=== PATIENT | female | born 1985 | race Caucasian/White ===

== ENCOUNTER 2017-11-05 21:25 | Inpatient (IN) | payer MEDICAID ==
[2017-11-05] MEDS ORDERED: LIDOCAINE 1% (MPF) 30 ML INJ (21:42)
[2017-11-05] MEDS ORDERED: AMPICILLIN 2 GM/NS (PMX) 100 ML (21:42)
[2017-11-05] MEDS ORDERED: LACTATED RINGER'S 1,000 ML IV (21:53)
[2017-11-05] MEDS ORDERED: CARBOPROST 250 MCG INJ IM ×2 (22:00→23:30)
[2017-11-05] MEDS ORDERED: BUTORPHANOL 2 MG INJ IV (22:00)
[2017-11-05] MEDS ORDERED: OXYTOCIN 30 UNITS/LR 500 ML IV ×2 (22:00→23:30)
[2017-11-05] MEDS ORDERED: METHYLERGONOVINE 0.2 MG INJ IM ×2 (22:00→23:30)
[2017-11-05] MEDS ORDERED: IBUPROFEN 600 MG TAB PO (22:00)
[2017-11-05] MEDS ORDERED: MISOPROSTOL 200 MCG TAB PR ×2 (22:00→23:30)
[2017-11-05] MEDS: AMPICILLIN 2 GM/NS (PMX) 100 ML IV (22:12)
[2017-11-05] MEDS: LACTATED RINGER'S 1,000 ML IV (22:12)
[2017-11-05 22:17] LABS: ADD MAN DIFF? NO
[2017-11-05 22:18] LABS: BASOPHILS % 0.3 % (0.0-2.0); EOSINOPHILS % 0.6 % (0.0-7.0); HEMATOCRIT 35.9 % (37.0-47.0); HEMOGLOBIN 12.4 g/dl (12.0-16.0); LYMPHOCYTES # 1.7 10^3/ul (0.8-2.9); LYMPHOCYTES % 24.3 % (15.0-51.0); MEAN CORPUSCULAR HEMOGLOBIN 30.3 pg (29.0-33.0); MEAN CORPUSCULAR HGB CONC 34.5 g/dl (32.0-37.0); MEAN CORPUSCULAR VOLUME 87.8 fl (82.0-101.0); MEAN PLATELET VOLUME 10.1 fl (7.4-10.4); MONOCYTE # 0.4 10^3/ul (0.3-0.9); NEUTROPHIL # 4.8 10^3/ul (1.6-7.5); NEUTROPHILS % 68.5 % (39.0-77.0); PLATELET COUNT 214 10^3/UL (140-415); RED BLOOD COUNT 4.09 10^6/ul (4.20-5.40); RED CELL DISTRIBUTION WIDTH 12.5 % (11.5-14.5)
[2017-11-05 22:45] LABS: INR 0.92; PROTIME 12.4 Sec (11.9-14.9)
[2017-11-05 22:46] LABS: PARTIAL THROMBOPLASTIN TIME 33.4 Sec (25.0-35.0)
[2017-11-05] MEDS: OXYTOCIN 30 UNITS/LR 500 ML IV ×2 (22:49→23:13)
[2017-11-05] MEDS: LIDOCAINE 1% (MPF) 30 ML INJ INJ (23:01)
[2017-11-05] MEDS: LACTATED RINGER'S 1,000 ML IV* (23:08)
[2017-11-05] MEDS: IBUPROFEN 600 MG TAB PO (23:14)
[2017-11-05] MEDS ORDERED: OXYCODONE/ASPIRIN (4.88/325) TAB PO (23:30)
[2017-11-06] MEDS ORDERED: AMPICILLIN 1 GM/NS (PMX) 50 ML IV (02:00)
[2017-11-06] MEDS: OXYTOCIN 30 UNITS/LR 500 ML IV (04:27)
[2017-11-06] MEDS: BENZOCAINE 20% 56 ML SPRAY TOP (04:31)
[2017-11-06] MEDS: LANOLIN 7 GM TUBE TOP (04:32)
[2017-11-06] MEDS: IBUPROFEN 600 MG TAB PO ×4 (05:18→23:14)
[2017-11-06 22:10] LABS: RAPID PLASMA REAGIN NONREACTIVE (NR)
[2017-11-07] MEDS: IBUPROFEN 600 MG TAB PO ×3 (05:22→17:20)
[2017-11-07 08:56] LABS: ADD MAN DIFF? NO
[2017-11-07 08:59] LABS: WHITE BLOOD COUNT 6.8 10^3/ul (4.8-10.8)
[2017-11-07 08:59] LABS: BASOPHILS % 0.3 % (0.0-2.0); EOSINOPHILS # 0.1 10^3/ul (0.0-0.5); EOSINOPHILS % 0.9 % (0.0-7.0); HEMATOCRIT 31.5 % (37.0-47.0); HEMOGLOBIN 10.6 g/dl (12.0-16.0); LYMPHOCYTES # 1.7 10^3/ul (0.8-2.9); LYMPHOCYTES % 24.5 % (15.0-51.0); MEAN CORPUSCULAR HEMOGLOBIN 30.3 pg (29.0-33.0); MEAN CORPUSCULAR HGB CONC 33.7 g/dl (32.0-37.0); MEAN PLATELET VOLUME 10.1 fl (7.4-10.4); MONOCYTE # 0.4 10^3/ul (0.3-0.9); MONOCYTES % 5.1 % (0.0-11.0); NEUTROPHIL # 4.7 10^3/ul (1.6-7.5); NEUTROPHILS % 68.8 % (39.0-77.0); PLATELET COUNT 206 10^3/UL (140-415); RED CELL DISTRIBUTION WIDTH 12.7 % (11.5-14.5)
[2017-11-07] MEDS: DIPHTH/TET/ACEL PERTUSS (ADULT) 0.5 ML VIAL IM* (17:23)
== END 2017-11-07 19:25 | disposition home or self-care (01) | DRG 775 ==
LOC: OBT 21:25 → L-D 21:26 → PP1 11-06 00:25 → L-D 21:31 → OBT 21:40 → L-D 21:40
PROVIDERS: Obstetrics & Gynecology
PROC: 10E0XZZ Delivery of Products of Conception, External Approach (ICD-10-PCS; principal; 2017-11-05)
PROC: 0KQM0ZZ Repair Perineum Muscle, Open Approach (ICD-10-PCS; 2017-11-05)
PROC: 3E033VJ Introduction of Other Hormone into Peripheral Vein, Percutaneous Approach (ICD-10-PCS; 2017-11-05)
DX: O70.1 Second degree perineal laceration during delivery (principal); Z37.0 Single live birth; Z3A.39 39 weeks gestation of pregnancy
CPT/HCPCS: 85025; 85610; 85730; 86592; 86900; 86901; 90715

== ENCOUNTER 2019-04-08 20:40 | Inpatient (IN) | payer MEDICAID ==
[2019-04-08] MEDS ORDERED: METHYLERGONOVINE 0.2 MG INJ IM (22:30)
[2019-04-08] MEDS ORDERED: CARBOPROST 250 MCG INJ IM (22:30)
[2019-04-08] MEDS ORDERED: OXYTOCIN 30 UNITS/LR 500 ML IV (22:30)
[2019-04-08] MEDS ORDERED: MISOPROSTOL 200 MCG TAB PR (22:30)
[2019-04-08] MEDS ORDERED: BUTORPHANOL 2 MG INJ IV (22:30)
[2019-04-08] MEDS: LACTATED RINGER'S 1,000 ML IV (22:57)
[2019-04-09] MEDS: MINERAL OIL LIGHT 10 ML VIAL TOP (00:30)
[2019-04-09] MEDS: OXYTOCIN 30 UNITS/LR 500 ML IV ×3 (03:04→03:09)
[2019-04-09] MEDS: LIDOCAINE 1% (MPF) 30 ML INJ INJ (03:05)
[2019-04-09] MEDS: LACTATED RINGER'S 1,000 ML IV* ×2 (03:09→08:04)
[2019-04-09] MEDS ORDERED: CARBOPROST 250 MCG INJ IM (03:30)
[2019-04-09] MEDS ORDERED: METHYLERGONOVINE 0.2 MG INJ IM (03:30)
[2019-04-09] MEDS ORDERED: HYDROCODONE/APAP (5/325) TAB PO ×2 (03:30)
[2019-04-09] MEDS ORDERED: MISOPROSTOL 200 MCG TAB PR (03:30)
[2019-04-09] MEDS ORDERED: DIBUCAINE 1% 30 GM OINT TOP (03:30)
[2019-04-09] MEDS ORDERED: OXYTOCIN 30 UNITS/LR 500 ML IV (03:30)
[2019-04-09] MEDS: BENZOCAINE 20% 56 ML SPRAY TOP (05:38)
[2019-04-09] MEDS: WITCH HAZEL/GLYCERIN PAD PR (05:39)
[2019-04-09] MEDS: IBUPROFEN 600 MG TAB PO ×4 (05:39→23:43)
[2019-04-09] MEDS: LANOLIN HPA 1 PKT TOP (05:39)
[2019-04-10] MEDS: IBUPROFEN 600 MG TAB PO ×2 (05:49→11:25)
[2019-04-11] MEDS ORDERED: DIPHTH/TET/ACEL PERTUSS (ADULT) 0.5 ML VIAL IM* (09:00)
[2019-04-11] MEDS ORDERED: VARICELLA VACCINE LIVE/PF 1,350 UNIT/0.5 ML ML SC* (09:00)
[2019-04-11] MEDS ORDERED: MEASLES,MUMPS,RUBELLA VACCINE INJ SC* (09:00)
== END 2019-04-10 13:50 | disposition home or self-care (01) | DRG 807 ==
LOC: OBT 20:40 → MS1 04-09 04:39 → L-D 20:40 → PP1 04-09 20:52 → L-D 21:16 → OBT 21:35 → L-D 21:35
PROC: 10E0XZZ Delivery of Products of Conception, External Approach (ICD-10-PCS; principal; 2019-04-09)
PROC: 0KQM0ZZ Repair Perineum Muscle, Open Approach (ICD-10-PCS; 2019-04-09)
DX: O70.1 Second degree perineal laceration during delivery (principal); Z37.0 Single live birth; Z3A.38 38 weeks gestation of pregnancy
CPT/HCPCS: 85025; 85610; 85730; 86592; 86850; 86900; 86901; 87340